=== PATIENT | male | born 1980 | race Caucasian/White ===

== ENCOUNTER 2023-09-26 12:51 | Inpatient (IN) | payer MEDICARE, OTHER ==
[~2023-09-26] VITALS: Ht 182.9 cm; Wt 72.6 kg
[2023-09-26] MEDS: IV NS 1000 ML 1,000 ML IV ONE ×2 (13:27→14:49)
[2023-09-26 13:32] LABS: BASOPHILS # (AUTO) 0.1 K/UL (0.0-0.2); BASOPHILS % (AUTO) 0.4 % (0.0-2.0); EOSINOPHILS % (AUTO) 0.1 % (0.0-7.0); HEMATOCRIT 44.6 % (36.7-47.1); LYMPHOCYTES % (AUTO) 6.6 % (20.5-51.5); MEAN CORPUSCULAR HEMOGLOBIN 32.8 uug (23.8-33.4); MEAN CORPUSCULAR HGB CONC 34 g/dL (32.5-36.3); MEAN CORPUSCULAR VOLUME 97.7 fL (73.0-96.2); MONOCYTES # (AUTO) 1.1 K/uL (0.1-1.30); MONOCYTES % (AUTO) 7.7 % (0.0-11.0); NEUTROPHILS # (AUTO) 12.4 K/uL (1.8-8.9); NEUTROPHILS % (AUTO) 85.2 % (38.5-71.5); PLATELET COUNT (AUTO) 165 K/uL (152-348); RED BLOOD CELL COUNT(AUTO) 4.56 MIL/uL (4.06-5.63); RED CELL DISTRIBUTION WIDTH 13.6 % (12.1-16.2); WHITE BLOOD COUNT (AUTO) 14.5 K/uL (3.6-10.2)
[2023-09-26 13:44] LABS: DIFFERENTIAL COMMENT 1
[2023-09-26 13:47] LABS: CALCIUM 9.1 mg/dL (8.5-10.1); CARBON DIOXIDE 28 mmol/L (21-32); CHLORIDE 100 mmol/L (98-107); CREATININE 1.2 mg/dL (0.6-1.3); GLUCOSE 118 mg/dL (74-106); POTASSIUM 3.6 mmol/L (3.5-5.1); SODIUM SERUM 139 mmol/L (136-145); UREA NITROGEN, BLOOD 11 mg/dL (7-18)
[2023-09-26 13:56] LABS: ALANINE AMINOTRANSFERASE 7 U/L (16-63); ALKALINE PHOSPHATASE 63 U/L (50-136); ASPARTATE AMINOTRANSFERASE < 5 U/L (15-37); BILIRUBIN,DIRECT 0.2 mg/dL (0.0-0.2); BILIRUBIN,TOTAL 1.3 mg/dL (0.2-1.0); TOTAL PROTEIN, SERUM 8.3 g/dL (6.4-8.2)
[2023-09-26 14:02] LABS: *BILIRUBIN,URIN NEGATIVE (NEGATIVE); *BLOOD, URINE 3+ (NEGATIVE); *CLARITY,URINE SLIGHTLY CLOUDY (CLEAR); *COLOR,URINE YELLOW (YELLOW); *KETONES,URINE NEGATIVE (NEGATIVE); *PROTEIN,URINE 2+ (NEGATIVE); LEUKOCYTE ESTERASE ,URINE 2+ (NEGATIVE); NITRITE, URINE POSITIVE (NEGATIVE); UGLUCOSE NEGATIVE (NEGATIVE)
[2023-09-26] MEDS: AZITHROMYCIN IV 500 MG in IV DEXTROSE 5% 250 ML IV ONE (14:15)
[2023-09-26 14:18] LABS: BACTERIA,URINE MANY /HPF (NONE SEEN); RBC,URINE 80-100 /HPF (0-3); SQUAMOUS EPITHELIAL CELL,UR MODERATE /HPF (NONE SEEN); WBC,URINE TNTC /HPF (0-3)
[2023-09-26] MEDS ORDERED: CEFTRIAXONE /D5W 50ML IVPB **ER PYXIS IV ONE (14:37)
[2023-09-26] MEDS ORDERED: AZITHROMYCIN 500MG/ D5W 250ML IVPB **ER PYXIS ONLY IV ONE (14:37)
[2023-09-26] MEDS: CEFTRIAXONE 1 G in IV DEXTROSE 5% 50 ML IV ONE (14:48)
[2023-09-26] MEDS ORDERED: SERT100T PO (16:19)
[2023-09-26] MEDS ORDERED: LORA0.5T48 PO ×3 (16:19)
[2023-09-26] MEDS ORDERED: AMAN100T PO (16:19)
[2023-09-26] MEDS ORDERED: OLAN5TAB3 PO (16:19)
[2023-09-26] MEDS ORDERED: LAMO100T2 PO (16:19)
[2023-09-26] MEDS ORDERED: LORAZEPAM 0.5 MG TABLET PO PRN ×3 (18:00→18:03)
[2023-09-26] MEDS ORDERED: ONDANSETRON 4 MG/2 ML VIAL IV PRN (18:00)
[2023-09-26] MEDS ORDERED: REMEDY ESSENTIAL ZINC PASTE 113 GM TP PRN (18:00)
[2023-09-26 18:44] LABS: THYROID STIMULATING HORMONE 0.493 mIU/mL (0.358-3.740)
[2023-09-26] MEDS: SERTRALINE HCL 100 MG TABLET PO SCH (18:44)
[2023-09-26] MEDS: IV NS 1000 ML 1,000 ML IV PRN (20:11)
[2023-09-26] MEDS: CEFTRIAXONE 1 G in IV DEXTROSE 5% 50 ML IV SCH (20:18)
[2023-09-26 20:50] VITALS: BP 95/54; TEMP 97.9; O2SAT 92
[2023-09-26] MEDS: ENOXAPARIN SODIUM 40 MG/0.4 ML DISP.SYRIN SQ SCH (20:57)
[2023-09-26] MEDS: AMANTADINE HCL 100 MG CAPSULE PO SCH (20:57)
[2023-09-27 04:55] VITALS: BP 105/63; TEMP 99; O2SAT 97
[2023-09-27] MEDS: ACETAMINOPHEN 325 MG TABLET PO PRN (06:06)
[2023-09-27 06:45] LABS: BASOPHILS % (AUTO) 0.3 % (0.0-2.0); EOSINOPHILS % (AUTO) 0.2 % (0.0-7.0); HEMATOCRIT 42.1 % (36.7-47.1); HEMOGLOBIN 14.3 g/dL (12.5-16.3); LYMPHOCYTES # (AUTO) 0.9 K/uL (0.8-4.8); LYMPHOCYTES % (AUTO) 10.3 % (20.5-51.5); MEAN CORPUSCULAR HEMOGLOBIN 33.2 uug (23.8-33.4); MEAN CORPUSCULAR HGB CONC 34 g/dL (32.5-36.3); MEAN CORPUSCULAR VOLUME 97.6 fL (73.0-96.2); MONOCYTES # (AUTO) 0.2 K/uL (0.1-1.30); MONOCYTES % (AUTO) 2.2 % (0.0-11.0); NEUTROPHILS # (AUTO) 7.2 K/uL (1.8-8.9); PLATELET COUNT (AUTO) 124 K/uL (152-348); RED BLOOD CELL COUNT(AUTO) 4.31 MIL/uL (4.06-5.63); RED CELL DISTRIBUTION WIDTH 13.4 % (12.1-16.2); WHITE BLOOD COUNT (AUTO) 8.3 K/uL (3.6-10.2)
[2023-09-27 07:10] LABS: DIFFERENTIAL COMMENT 1
[2023-09-27 07:18] LABS: CALCIUM 8.8 mg/dL (8.5-10.1); MAGNESIUM 1.9 mg/dL (1.8-2.4); POTASSIUM 4.2 mmol/L (3.5-5.1)
[2023-09-27] MEDS: LAMOTRIGINE 100 MG TABLET PO SCH (09:27)
[2023-09-27] MEDS: LORAZEPAM 1 MG TABLET PO PRN (09:27)
[2023-09-27] MEDS: OLANZAPINE 5 MG TABLET PO SCH (09:27)
[2023-09-27 11:35] VITALS: BP 98/66; TEMP 97.7; O2SAT 92
[2023-09-27] MEDS: NEUTRA PHOS PACKET PO ONE (12:47)
[2023-09-27] MEDS: LORAZEPAM 0.5 MG TABLET PO SCH ×2 (14:54→20:21)
[2023-09-27 16:02] VITALS: BP 103/69; TEMP 99; O2SAT 93
[2023-09-27 20:01] VITALS: BP 102/66; TEMP 99.7; O2SAT 93
[2023-09-28 06:00] VITALS: BP 146/65; TEMP 97.4; TEMP 98.4; O2SAT 100
[2023-09-28 06:29] LABS: BASOPHILS % (AUTO) 0.4 % (0.0-2.0); EOSINOPHILS # (AUTO) 0.1 K/uL (0.0-0.7); EOSINOPHILS % (AUTO) 1.4 % (0.0-7.0); HEMATOCRIT 38.5 % (36.7-47.1); LYMPHOCYTES % (AUTO) 12.9 % (20.5-51.5); MEAN CORPUSCULAR HEMOGLOBIN 32.9 uug (23.8-33.4); MEAN CORPUSCULAR HGB CONC 34 g/dL (32.5-36.3); MEAN CORPUSCULAR VOLUME 97.6 fL (73.0-96.2); MONOCYTES # (AUTO) 0.9 K/uL (0.1-1.30); MONOCYTES % (AUTO) 12.2 % (0.0-11.0); NEUTROPHILS # (AUTO) 5.6 K/uL (1.8-8.9); NEUTROPHILS % (AUTO) 73.1 % (38.5-71.5); PLATELET COUNT (AUTO) 130 K/uL (152-348); RED BLOOD CELL COUNT(AUTO) 3.94 MIL/uL (4.06-5.63); RED CELL DISTRIBUTION WIDTH 13.6 % (12.1-16.2); WHITE BLOOD COUNT (AUTO) 7.7 K/uL (3.6-10.2)
[2023-09-28 07:03] LABS: CALCIUM 8.4 mg/dL (8.5-10.1); CREATININE 0.8 mg/dL (0.6-1.3); PHOSPHOROUS 2.4 mg/dL (2.5-4.9); POTASSIUM 3.9 mmol/L (3.5-5.1)
[2023-09-28 08:06] LABS: DIFFERENTIAL COMMENT 1
[2023-09-28] MEDS: LORAZEPAM 1 MG TABLET PO SCH (08:54)
[2023-09-28] MEDS: NEUTRA PHOS PACKET PO ONE (12:08)
[2023-09-28 20:00] VITALS: BP 115/78; TEMP 98.8; O2SAT 93
[2023-09-29] MEDS: TEMAZEPAM 15 MG CAPSULE PO PRN (00:58)
[2023-09-29 05:00] VITALS: BP 97/65; TEMP 98.1; O2SAT 93
[2023-09-29] MEDS ORDERED: TEMAZEPAM 15 MG CAPSULE PO PRN (06:00)
[2023-09-29 08:05] LABS: BASOPHILS % (AUTO) 0.5 % (0.0-2.0); EOSINOPHILS # (AUTO) 0.2 K/uL (0.0-0.7); HEMATOCRIT 36.5 % (36.7-47.1); HEMOGLOBIN 12.6 g/dL (12.5-16.3); LYMPHOCYTES # (AUTO) 1.1 K/uL (0.8-4.8); LYMPHOCYTES % (AUTO) 21.4 % (20.5-51.5); MEAN CORPUSCULAR HEMOGLOBIN 33.2 uug (23.8-33.4); MEAN CORPUSCULAR HGB CONC 34 g/dL (32.5-36.3); MEAN CORPUSCULAR VOLUME 96.5 fL (73.0-96.2); MONOCYTES # (AUTO) 0.8 K/uL (0.1-1.30); MONOCYTES % (AUTO) 15.1 % (0.0-11.0); NEUTROPHILS # (AUTO) 3.2 K/uL (1.8-8.9); PLATELET COUNT (AUTO) 156 K/uL (152-348); RED BLOOD CELL COUNT(AUTO) 3.78 MIL/uL (4.06-5.63); RED CELL DISTRIBUTION WIDTH 13.5 % (12.1-16.2); WHITE BLOOD COUNT (AUTO) 5.3 K/uL (3.6-10.2)
[2023-09-29 08:29] LABS: DIFFERENTIAL COMMENT 1
[2023-09-29 08:35] LABS: CREATININE 0.7 mg/dL (0.6-1.3); MAGNESIUM 1.9 mg/dL (1.8-2.4); PHOSPHOROUS 3.1 mg/dL (2.5-4.9); POTASSIUM 3.4 mmol/L (3.5-5.1)
[2023-09-29] MEDS: POTASSIUM CHLORIDE 20 MEQ TAB.PRT.SR PO ONE (10:51)
[2023-09-29 20:38] LABS: EOSINOPHILS % (MANUAL) 6 % (0-8); LYMPHOCYTES % (MANUAL) 26 % (20-40); MONOCYTES % (MANUAL) 13 % (2-10); NEUTROPHILS % (MANUAL) 55 % (42-75)
[2023-09-29 20:40] LABS: PLATELET ESTIMATE ADEQUATE
[2023-09-29 20:56] VITALS: BP 99/62; TEMP 98.6; O2SAT 94
[2023-09-30 05:41] VITALS: BP 102/67; TEMP 98.2; O2SAT 94
[2023-09-30 07:38] LABS: BASOPHILS % (AUTO) 0.6 % (0.0-2.0); EOSINOPHILS # (AUTO) 0.2 K/uL (0.0-0.7); EOSINOPHILS % (AUTO) 3.9 % (0.0-7.0); HEMATOCRIT 39.4 % (36.7-47.1); HEMOGLOBIN 13.4 g/dL (12.5-16.3); LYMPHOCYTES # (AUTO) 1.6 K/uL (0.8-4.8); LYMPHOCYTES % (AUTO) 28.8 % (20.5-51.5); MEAN CORPUSCULAR HGB CONC 34 g/dL (32.5-36.3); MEAN CORPUSCULAR VOLUME 96.9 fL (73.0-96.2); MONOCYTES # (AUTO) 0.9 K/uL (0.1-1.30); MONOCYTES % (AUTO) 17.1 % (0.0-11.0); NEUTROPHILS # (AUTO) 2.8 K/uL (1.8-8.9); NEUTROPHILS % (AUTO) 49.6 % (38.5-71.5); PLATELET COUNT (AUTO) 185 K/uL (152-348); RED BLOOD CELL COUNT(AUTO) 4.07 MIL/uL (4.06-5.63); RED CELL DISTRIBUTION WIDTH 13.7 % (12.1-16.2); WHITE BLOOD COUNT (AUTO) 5.6 K/uL (3.6-10.2)
[2023-09-30 07:50] LABS: CALCIUM 8.2 mg/dL (8.5-10.1); CREATININE 0.8 mg/dL (0.6-1.3); DIFFERENTIAL COMMENT 1; PHOSPHOROUS 3.6 mg/dL (2.5-4.9); POTASSIUM 3.9 mmol/L (3.5-5.1)
[2023-09-30 08:00] VITALS: BP 100/66; TEMP 98.4; O2SAT 96
[2023-09-30] MEDS ORDERED: SULF1TAB48 PO (10:44)
[2023-09-30 10:46] LABS: ANISOCYTOSIS 1+; EOSINOPHILS % (MANUAL) 1 % (0-8); LYMPHOCYTES % (MANUAL) 37 % (20-40); MONOCYTES % (MANUAL) 10 % (2-10); NEUTROPHILS % (MANUAL) 52 % (42-75); PLATELET ESTIMATE ADEQUATE
[2023-09-30] MEDS: SULFAMETH/TRIMETH 800/160 MG TABLET PO SCH (12:13)
[2023-09-30 17:00] VITALS: BP 94/65; TEMP 98.4; O2SAT 94
[2023-10-01] MEDS: TEMAZEPAM 15 MG CAPSULE PO PRN (00:45)
[2023-10-01] MEDS: ENSURE ENLIVE (VAN) 240 ML LIQUID PO SCH (08:02)
[2023-10-01 09:21] VITALS: BP 96/55; TEMP 97.6; O2SAT 97
[2023-10-01 16:08] VITALS: BP 92/62; TEMP 97.6; O2SAT 97
[2023-10-01 19:57] VITALS: BP 96/62; TEMP 97.9; O2SAT 93
[2023-10-02 05:52] VITALS: BP 108/66; TEMP 97.9; O2SAT 94
[2023-10-02 08:00] VITALS: BP 105/60; TEMP 97.9; O2SAT 96
[2023-10-02 11:45] VITALS: BP 105/69; TEMP 98; O2SAT 95
[2023-10-02 16:14] VITALS: BP 120/68; TEMP 98.1; O2SAT 95
[2023-10-02 20:00] VITALS: TEMP 98
[2023-10-02] MEDS ORDERED: AMANTADINE HCL 100 MG CAPSULE ONE (21:12)
[2023-10-03 04:00] VITALS: TEMP 98.1
[2023-10-03 11:45] VITALS: BP 91/58; TEMP 97.8; O2SAT 96
[2023-10-03 16:00] VITALS: BP 90/56; TEMP 97.6; O2SAT 96
== END 2023-10-03 18:53 | DRG 871 ==
LOC: ER 12:57 → MEDSURG3 17:38
PROVIDERS: ADMIT Nurse Practitioner Acute Care; ATTEND Nurse Practitioner Acute Care
DX: A41.9 Sepsis, unspecified organism (principal); G93.41 Metabolic encephalopathy; N39.0 Urinary tract infection, site not specified; J98.11 Atelectasis; Z16.24 Resistance to multiple antibiotics; E83.39 Other disorders of phosphorus metabolism; F41.9 Anxiety disorder, unspecified; E80.6 Other disorders of bilirubin metabolism; Z87.820 Personal history of traumatic brain injury; F32.A Depression, unspecified; R73.9 Hyperglycemia, unspecified; B96.20 Unspecified Escherichia coli [E. coli] as the cause of diseases classified elsewhere
CPT/HCPCS: 36415; 70030-TC; 71045; 83605; 83735; 84100; 84443; 84484; 85025; 87040; 93005; A4606; A4663; G0378; J0456; J0696; J1650; J7040